=== PATIENT | female | born 1965 | race African-American/Black ===

== ENCOUNTER 2016-07-29 19:18 | Emergency (ER) | payer SELFPAY ==
[~2016-07-29] VITALS: Ht 172.7 cm; Wt 61.5 kg
[2016-07-29 19:20] VITALS: BP 161/82; PULSE 97; RESP 16; TEMP 98.3; O2SAT 98
[2016-07-29] MEDS ORDERED: CLIN150 PO (20:05)
[2016-07-29] MEDS ORDERED: DICL50TA3 PO (20:05)
--- NOTE | 2016-07-29 20:10 | PD ---
HPI Chief Complaint: Pain: Acute or Chronic Time Seen by Provider: 20:05 Travel History International Travel<30 days: No Contact w/Intl Traveler<30days: No Traveled to known affect area: No History of Present Illness HPI 50-year-old black female presents emergency Department with complaints of facial swelling over last several days. She states that her upper lip is becoming painful and swollen. She has known poor dentition. She denies any fever or chills. No difficulty swallowing. No shortness of breath. She denies any allergic exposures. No new chemicals. She states that she has hypertension but does not treat it. [facility] Past Medical History Narrative Medical Hypertension, goiter Tetanus Vaccination: < 5 Years LMP: 06/15/16 Past Surgical History Surgical History: No Previous Surgery Social History Alcohol Use: No Tobacco Use: No Allergies-Medications (Allergen,Severity, Reaction): Coded Allergies: Penicillin (Verified Allergy, Unknown, 07/29/16) Reported Meds & Prescriptions Reported Meds & Active Scripts Active Diclofenac Sodium DR (Diclofenac Sodium) 50 Mg Tabdr 50 Mg PO TID Cleocin (Clindamycin HCl) 150 Mg Cap 300 Mg PO Q6H Review of Systems Except as stated in HPI: all other systems reviewed are Neg General / Constitutional: No: Fever, Chills Eyes: No: Blurred Vision, Foreign Body Sensation HENT: Positive: Gingival Bleeding, Dental Difficulties, No: Headaches, Sore Throat, Congestion Cardiovascular: No: Chest Pain or Discomfort, Palpitations Respiratory: No: Cough, Shortness of Breath Gastrointestinal: No: Nausea, Vomiting Physical Exam Narrative GENERAL: Well-developed, well-nourished in no acute distress. Nontoxic appearing. HEAD: Patient has some swelling of the maxilla involving the anterior upper lip region. This is just below the nose. EYES: Pupils equal round and reactive. Extraocular motions intact. No scleral icterus. No injection or drainage. ENT: TMs clear without erythema. The external auditory canals clear. Nose: clear . Posterior pharynx is pink and moist. No tonsillar edema or exudate. Uvula midline. Airway patent. The patient has very bad dentition. She has multiple teeth decayed to the gumline with gingival erythema, edema and obvious abscess. There is an area of draining pus. Posterior portion of the pharynx is clear NECK: Trachea midline.Supple, nontender, moves head freely. No central bony tenderness or spasm. Patient has a mobile nontender nodular lesion in the area of the thyroid cartilage consistent with either a goiter a cyst. CARDIOVASCULAR: Regular rate and rhythm without murmurs, gallops, or rubs. RESPIRATORY: Clear to auscultation. Breath sounds equal bilaterally. No wheezes , rales, or rhonchi. GASTROINTESTINAL: Abdomen soft, non-tender, nondistended. No hepato-splenomegaly , or palpable masses. No guarding. EXTREMITIES: No clubbing, cyanosis, or edema. No joint tenderness, effusion, or edema noted. BACK: Nontender without deformity or crepitance. No flank tenderness. Data Data Last Documented VS Vital Signs Date Time Temp Pulse Resp B/P Pulse Ox O2 Delivery O2 Flow Rate FiO2 07/29/16 19:20 98.3 97 16 161/82 98 Room Air Orders Clindamycin Inj (Cleocin Inj) (07/29/16 20:15) Acetamin-Hydrocod 325-5 Mg ([place] 5-325 (07/29/16 20:15) MDM Medical Decision Making Medical Screen Exam Complete: Yes Emergency Medical Condition: Yes Medical Record Reviewed: Yes Differential Diagnosis MDM: Moderate Differential diagnoses: Dental abscess, dental caries, osteitis, cellulitis Narrative Course Patient's given clindamycin 600 mg IM and Lortab 5 a grams by mouth. This is dental abscess with facial cellulitis Diagnosis Primary Impression: dENTAL ABSCESS WITH FACIAL CELLULITIS Patient Instructions: Narcotic given in the ED, General Instructions Departure Forms: Tests/Procedures, Work Release Special Instructions: No work 2 days. Additional Instructions: Rest. Saltwater gargles. Latty oil on cotton balls. Diclofenac and clindamycin. follow-up with a dentist as soon as possible. And return to the ER if any problems. Med/Other Pt SpecificInfo: Prescription(s) given Scripts Diclofenac Sodium DR 50 Mg Tabdr50 Mg PO TID #21 TAB Prov:Andrea Hughes MD 07/29/16 Clindamycin (Cleocin)150 Mg Avs042 Mg PO Q6H #80 CAP Prov:Andrea Hughes MD 07/29/16 Disposition: 01 DISCHARGE HOME Condition: Stable Richy Morley Jul 29, 2016 20:10
[2016-07-29] MEDS ORDERED: CLINDAMYCIN PHOS 600 MG/4 ML VIAL IM ONE (20:15)
[2016-07-29] MEDS ORDERED: ACETAMINOPHEN/HYDROcodone 325 MG/5 MG TAB PO ONE (20:15)
== END 2016-07-29 20:45 | disposition home or self-care (01) ==
LOC: NEPB 19:18
DX: K04.7 Periapical abscess without sinus (principal); L03.211 Cellulitis of face; I10 Essential (primary) hypertension; E07.9 Disorder of thyroid, unspecified
CPT/HCPCS: 96372